=== PATIENT | male | born 1990 | race African-American/Black ===

== ENCOUNTER 2018-11-12 00:37 | Emergency (ER) | payer SELFPAY ==
[~2018-11-12] VITALS: Ht 188 cm; Wt 75.0 kg
[2018-11-12 01:02] VITALS: BP 130/100
== END 2018-11-12 02:30 | disposition left against medical advice (07) ==
LOC: EMS 00:37
DX: M79.644 Pain in right finger(s) (principal); M79.645 Pain in left finger(s); Z53.21 Procedure and treatment not carried out due to patient leaving prior to being seen by health care provider

== ENCOUNTER 2020-08-19 12:06 | Emergency (ER) | payer MEDICAID ==
[~2020-08-19] VITALS: Ht 188 cm; Wt 79.5 kg
[2020-08-19 12:17] VITALS: BP 159/80
[2020-08-19] MEDS ORDERED: AMPICILLIN SODIUM/SULBACTAM NA 3 GM in SODIUM CHLORIDE 0.9% 100 ML IV ONE (12:30)
== END 2020-08-19 12:48 | disposition left against medical advice (07) ==
LOC: EMS 12:07
DX: S61.452A Open bite of left hand, initial encounter (principal); L08.9 Local infection of the skin and subcutaneous tissue, unspecified; F17.210 Nicotine dependence, cigarettes, uncomplicated; F12.90 Cannabis use, unspecified, uncomplicated; F13.90 Sedative, hypnotic, or anxiolytic use, unspecified, uncomplicated; Y04.1XXA Assault by human bite, initial encounter; Y93.89 Activity, other specified; Y92.89 Other specified places as the place of occurrence of the external cause; Y99.8 Other external cause status
CPT/HCPCS: J0295; J7050